=== PATIENT | male | born 1950 | race African-American/Black ===

== ENCOUNTER 2017-05-09 09:50 | Emergency (ER) | payer MEDICARE, OTHER ==
[~2017-05-09] VITALS: Ht 172.7 cm; Wt 70.0 kg
[~2017-05-09 09:50] MED LIST: ACET-2178 PO; AMLO5TAB4 PO; ASPI-1159 PO; CLOP75TA33 PO; DOCU-150 PO; FAMO20TA8 PO; HJ10 SUBCUT; HYDR-519 PO; INSASP SQ; IPRA3AMP IH; LACT10SO6 PO; LEVVL SQ; LORA-250 PO; MULT-1146 PO; NITR0.4T3 SL; NITR1OIN TD; RANO10003 PO; TRAM50TA3 PO; VIT D PO; ZOLP5TAB8 PO
[2017-05-09] MEDS ORDERED: METHYLPREDNISOLONE SOD SUCC 125 MG/2 ML VIAL IV STA (10:12)
[2017-05-09] MEDS ORDERED: IPRATROPIUM BROMIDE (0.02%) 0.5MG/2.5ML NEB HHN STA (10:12)
[2017-05-09 10:51] LABS: BASOPHILS % 0.8 % (0.0-2.0); EOSINOPHILS % 5.7 % (0.0-5.0); HEMATOCRIT. 42.2 % (42.0-52.0); HEMOGLOBIN. 13.6 g/dL (14.0-18.0); LYMPHOCYTES % 41.7 % (20.0-50.0); MEAN CORPUSCULAR HEMOGLOBIN 28.1 pg (28.0-32.0); MEAN CORPUSCULAR VOLUME 87.2 fL (80.0-94.0); MEAN PLATELET VOLUME 8.8 fl (7.4-10.4); MONOCYTES % 9.2 % (2.0-8.0); NEUTROPHILS % 42.6 % (40.0-76.0); PLATELET 230 x1000/uL (130-400); RED BLOOD CELL COUNT 4.84 mill/uL (4.7-6.1); RED CELL DISTRIBUTION WIDTH 15.3 % (11.6-14.6)
[2017-05-09 10:58] LABS: CHLORIDE 102 mEq/L (98-107); PROTHROMBIN TIME 10.7 sec
[2017-05-09] MEDS: ALBUTEROL (0.083%) 2.5MG/3ML NEB HHN SCH ×3 (10:58→11:29)
[2017-05-09 11:06] LABS: CARBON DIOXIDE 34 mEq/L (21-32)
[2017-05-09 18:51] VITALS: BP 143/72
== END 2017-05-09 19:01 | disposition home or self-care (01) ==
LOC: ER 10:07
DX: J44.1 Chronic obstructive pulmonary disease with (acute) exacerbation (principal); I10 Essential (primary) hypertension; E11.9 Type 2 diabetes mellitus without complications; F12.10 Cannabis abuse, uncomplicated; F14.10 Cocaine abuse, uncomplicated; F41.9 Anxiety disorder, unspecified; I25.10 Atherosclerotic heart disease of native coronary artery without angina pectoris; K21.9 Gastro-esophageal reflux disease without esophagitis; Z87.891 Personal history of nicotine dependence; Z79.82 Long term (current) use of aspirin; Z79.4 Long term (current) use of insulin
CPT/HCPCS: 36415; 71010; 80053; 85025; 85610; 93005; 94640; 96374; 99285; 99406; J2930; J7611

== ENCOUNTER 2017-07-06 08:33 | Inpatient (IN) | payer MEDICARE ==
[~2017-07-06] VITALS: Ht 185.4 cm; Wt 65.8 kg
[2017-07-06] MEDS ORDERED: SODIUM CHLORIDE 0.9% 1,000 ML IV ONE (08:48)
[2017-07-06] MEDS ORDERED: METHYLPREDNISOLONE SOD SUCC 125 MG/2 ML VIAL IV STA (08:48)
[2017-07-06] MEDS ORDERED: IPRATROPIUM/ALBUTEROL 0.5-3(2.5)MG/3ML NEB HHN ONE (09:00)
[2017-07-06 09:16] LABS: BASOPHILS % 1.3 % (0.0-2.0); EOSINOPHILS % 4.5 % (0.0-5.0); HEMATOCRIT. 41.5 % (42.0-52.0); HEMOGLOBIN. 13.3 g/dL (14.0-18.0); MEAN CORPUSCULAR VOLUME 87.1 fL (80.0-94.0); MEAN PLATELET VOLUME 8.8 fl (7.4-10.4); MONOCYTES % 6.9 % (2.0-8.0); NEUTROPHILS % 41.3 % (40.0-76.0); PLATELET 234 x1000/uL (130-400); RED BLOOD CELL COUNT 4.76 mill/uL (4.7-6.1); RED CELL DISTRIBUTION WIDTH 15.9 % (11.6-14.6)
[2017-07-06 09:25] LABS: PROTHROMBIN TIME 10.6 sec
[2017-07-06 09:33] LABS: CARBON DIOXIDE 31 mEq/L (21-32); CHLORIDE 104 mEq/L (98-107); TROPONIN I < 0.02 ng/mL (0.00-0.04)
[2017-07-06 09:53] LABS: CLARITY URINE CLEAR (CLEAR); COLOR URINE YELLOW (YELLOW); GLUCOSE URINE NEGATIVE (NEGATIVE); KETONES URINE NEGATIVE (NEGATIVE); LEUKOCYTE ESTERASE URINE NEGATIVE (NEGATIVE); NITRITE URINE NEGATIVE (NEGATIVE); OCCULT BLOOD URINE NEGATIVE (NEGATIVE); PROTEIN URINE NEGATIVE (NEGATIVE); SPECIFIC GRAVITY URINE 1.011 (1.005-1.030); UROBILINOGEN URINE 0.2 E.U./dL (0.2-1.0)
[2017-07-06] MEDS ORDERED: ZOLPIDEM TARTRATE 5MG TABLET PO PRN (20:30)
[2017-07-06] MEDS ORDERED: HYDROCODONE/ACETAMINOPHEN 10/325MG TABLET PO PRN (20:30)
[2017-07-06] MEDS ORDERED: DEXTROSE 50% WATER 50ML SYRINGE IV PRN (20:30)
[2017-07-06] MEDS ORDERED: NITROGLYCERIN 0.4MG TABLET SL SL PRN (20:30)
[2017-07-06] MEDS ORDERED: LACTULOSE 20G/30ML UDC PO PRN (20:30)
[2017-07-06] MEDS ORDERED: LORAZEPAM 1MG TABLET PO PRN (20:30)
[2017-07-06] MEDS ORDERED: ACETAMINOPHEN 325MG TABLET PO PRN (20:30)
[2017-07-06] MEDS: INSULIN LISPRO 100 UNITS/ML SUBCUT SCH (21:00)
[2017-07-06] MEDS ORDERED: AMLODIPINE 5MG TABLET PO SCH (21:00)
[2017-07-06] MEDS: BLOOD SUGAR DIAGNOSTIC STRIP TEST SCH (21:00)
[2017-07-06 21:25] VITALS: BP 152/93
[2017-07-06] MEDS ORDERED: CLONIDINE 0.1MG TABLET PO PRN (22:00)
[2017-07-06] MEDS ORDERED: ALBUTEROL (0.5%) 2.5MG/0.5ML NEB HHN ONE (22:07)
[2017-07-06 22:10] VITALS: BP 152/93
[2017-07-06] MEDS ORDERED: ALBUTEROL (0.083%) 2.5MG/3ML NEB ONE ×2 (22:28→22:32)
[2017-07-06] MEDS: AMLODIPINE 5MG TABLET PO SCH (22:49)
[2017-07-06] MEDS: RANOLAZINE 500 MG TAB.SR.12H PO SCH (22:50)
[2017-07-06 23:27] LABS: BASOPHILS % 0.3 % (0.0-2.0); HEMATOCRIT. 37.9 % (42.0-52.0); HEMOGLOBIN. 12.3 g/dL (14.0-18.0); LYMPHOCYTES % 33.6 % (20.0-50.0); MEAN CORPUSCULAR VOLUME 86.7 fL (80.0-94.0); MEAN PLATELET VOLUME 8.8 fl (7.4-10.4); MONOCYTES % 4.2 % (2.0-8.0); NEUTROPHILS % 61.9 % (40.0-76.0); PLATELET 228 x1000/uL (130-400); RED BLOOD CELL COUNT 4.37 mill/uL (4.7-6.1); RED CELL DISTRIBUTION WIDTH 16.4 % (11.6-14.6)
[2017-07-06 23:45] LABS: CARBON DIOXIDE 29 mEq/L (21-32); CHLORIDE 102 mEq/L (98-107); TROPONIN I < 0.02 ng/mL (0.00-0.04)
[2017-07-07] VITALS: BP 133/80
[2017-07-07] MEDS ORDERED: ALBUTEROL (0.083%) 2.5MG/3ML NEB ONE ×4 (00:52→12:30)
[2017-07-07 04:00] VITALS: BP 134/85
[2017-07-07] MEDS: ALBUTEROL (0.5%) 2.5MG/0.5ML NEB HHN SCH ×3 (04:47→12:17)
[2017-07-07] MEDS: BLOOD SUGAR DIAGNOSTIC STRIP TEST SCH ×4 (06:22→20:41)
[2017-07-07] MEDS: INSULIN LISPRO 100 UNITS/ML SUBCUT SCH ×4 (06:35→20:41)
[2017-07-07 08:00] VITALS: BP 140/87
[2017-07-07] MEDS: DOCUSATE SODIUM 100MG CAPSULE PO SCH ×2 (08:39→17:28)
[2017-07-07] MEDS: ASPIRIN 81MG TABLET PO SCH (08:40)
[2017-07-07] MEDS: MULTIVITAMINS,THER W-MINERALS TABLET PO SCH (08:41)
[2017-07-07] MEDS: CLOPIDOGREL 75MG TABLET PO SCH (08:41)
[2017-07-07] MEDS: FAMOTIDINE 20MG TABLET PO SCH (08:41)
[2017-07-07] MEDS: AMLODIPINE 5MG TABLET PO SCH ×2 (08:42→21:00)
[2017-07-07] MEDS ORDERED: METHYLPREDNISOLONE SOD SUCC 40 MG/ML VIAL IV SCH (08:45)
[2017-07-07] MEDS: RANOLAZINE 500 MG TAB.SR.12H PO SCH ×2 (08:47→21:17)
[2017-07-07] MEDS: ENOXAPARIN 40MG/0.4ML SYR SUBCUT SCH (09:00)
[2017-07-07 11:46] LABS: *AMPHETAMINES SCREEN URINE NEGATIVE (NEGATIVE); *BARBITURATES SCREEN URINE NEGATIVE (NEGATIVE); *BENZODIAZEPINES SCREEN URINE NEGATIVE (NEGATIVE); *COCAINE SCREEN URINE PRESUMTIVE POSITIVE (NEGATIVE); CANNABINOID URINE SCREEN NEGATIVE (NEGATIVE); METHADONE URINE SCREEN NEGATIVE (NEGATIVE); OPIATES URINE SCREEN NEGATIVE (NEGATIVE); PHENCYCLIDINE URINE SCREEN NEGATIVE (NEGATIVE)
[2017-07-07 12:00] VITALS: BP 136/83
[2017-07-07 16:00] VITALS: BP 130/80
[2017-07-07] MEDS: ALBUTEROL (0.083%) 2.5MG/3ML NEB HHN SCH ×2 (16:49→21:02)
[2017-07-07 20:00] VITALS: BP 116/71
[2017-07-08] VITALS (10 sets, daily range): BP systolic 117–145; BP diastolic 71–82
[2017-07-08] MEDS: ALBUTEROL (0.083%) 2.5MG/3ML NEB HHN SCH ×2 (00:29→04:38)
[2017-07-08 05:33] LABS: BASOPHILS % 0.2 % (0.0-2.0); EOSINOPHILS % 0.3 % (0.0-5.0); HEMATOCRIT. 35.2 % (42.0-52.0); HEMOGLOBIN. 11.4 g/dL (14.0-18.0); LYMPHOCYTES % 26.3 % (20.0-50.0); MEAN CORPUSCULAR VOLUME 86.7 fL (80.0-94.0); MONOCYTES % 10.4 % (2.0-8.0); NEUTROPHILS % 62.8 % (40.0-76.0); PLATELET 220 x1000/uL (130-400); RED BLOOD CELL COUNT 4.06 mill/uL (4.7-6.1); RED CELL DISTRIBUTION WIDTH 15.6 % (11.6-14.6)
[2017-07-08 06:17] LABS: CHLORIDE 101 mEq/L (98-107)
[2017-07-08 06:20] LABS: CARBON DIOXIDE 31 mEq/L (21-32)
[2017-07-08] MEDS: INSULIN LISPRO 100 UNITS/ML SUBCUT SCH ×4 (07:04→21:08)
[2017-07-08] MEDS: BLOOD SUGAR DIAGNOSTIC STRIP TEST SCH ×4 (07:04→21:00)
[2017-07-08] MEDS: CLOPIDOGREL 75MG TABLET PO SCH (08:29)
[2017-07-08] MEDS: ENOXAPARIN 40MG/0.4ML SYR SUBCUT SCH (08:29)
[2017-07-08] MEDS: DOCUSATE SODIUM 100MG CAPSULE PO SCH ×2 (08:29→17:25)
[2017-07-08] MEDS: ASPIRIN 81MG TABLET PO SCH (08:30)
[2017-07-08] MEDS: FAMOTIDINE 20MG TABLET PO SCH (08:30)
[2017-07-08] MEDS: MULTIVITAMINS,THER W-MINERALS TABLET PO SCH (08:31)
[2017-07-08] MEDS: AMLODIPINE 5MG TABLET PO SCH ×2 (08:33→20:36)
[2017-07-08] MEDS: RANOLAZINE 500 MG TAB.SR.12H PO SCH ×2 (08:33→21:05)
[2017-07-08] MEDS ORDERED: METHYLPREDNISOLONE SOD SUCC 40 MG/ML VIAL IV SCH (08:45)
[2017-07-08] MEDS: IPRATROPIUM BROMIDE (0.02%) 0.5MG/2.5ML NEB HHN SCH ×4 (09:19→20:52)
[2017-07-09] VITALS (7 sets, daily range): BP systolic 113–139; BP diastolic 68–83
[2017-07-09] MEDS: IPRATROPIUM BROMIDE (0.02%) 0.5MG/2.5ML NEB HHN SCH ×6 (01:29→21:36)
[2017-07-09] MEDS: INSULIN LISPRO 100 UNITS/ML SUBCUT SCH ×4 (06:09→20:53)
[2017-07-09] MEDS: BLOOD SUGAR DIAGNOSTIC STRIP TEST SCH ×4 (06:09→20:53)
[2017-07-09 06:29] LABS: BASOPHILS % 0.3 % (0.0-2.0); EOSINOPHILS % 0.7 % (0.0-5.0); HEMATOCRIT. 36.8 % (42.0-52.0); HEMOGLOBIN. 11.8 g/dL (14.0-18.0); LYMPHOCYTES % 36.1 % (20.0-50.0); MEAN CORPUSCULAR HEMOGLOBIN 27.4 pg (28.0-32.0); MEAN CORPUSCULAR VOLUME 85.4 fL (80.0-94.0); MEAN PLATELET VOLUME 8.8 fl (7.4-10.4); MONOCYTES % 10.8 % (2.0-8.0); NEUTROPHILS % 52.1 % (40.0-76.0); PLATELET 231 x1000/uL (130-400); RED BLOOD CELL COUNT 4.31 mill/uL (4.7-6.1); RED CELL DISTRIBUTION WIDTH 15.6 % (11.6-14.6)
[2017-07-09 07:04] LABS: CARBON DIOXIDE 33 mEq/L (21-32); CHLORIDE 99 mEq/L (98-107)
[2017-07-09] MEDS: CLOPIDOGREL 75MG TABLET PO SCH (09:54)
[2017-07-09] MEDS: ASPIRIN 81MG TABLET PO SCH (09:55)
[2017-07-09] MEDS: FAMOTIDINE 20MG TABLET PO SCH (09:55)
[2017-07-09] MEDS: RANOLAZINE 500 MG TAB.SR.12H PO SCH ×2 (09:55→20:34)
[2017-07-09] MEDS: MULTIVITAMINS,THER W-MINERALS TABLET PO SCH (09:55)
[2017-07-09] MEDS: DOCUSATE SODIUM 100MG CAPSULE PO SCH ×2 (09:55→17:30)
[2017-07-09] MEDS: AMLODIPINE 5MG TABLET PO SCH ×2 (09:55→20:46)
[2017-07-09] MEDS: ENOXAPARIN 40MG/0.4ML SYR SUBCUT SCH (09:56)
[2017-07-09] MEDS: BUDESONIDE 0.5MG/2ML NEB HHN SCH ×2 (12:22→21:36)
[2017-07-09] MEDS ORDERED: NICOTINE 21MG PATCH TD NR (13:30)
[2017-07-09] MEDS ORDERED: FUROSEMIDE 20MG/2ML VIAL IVP SCH (13:30)
[2017-07-09] MEDS: METHYLPREDNISOLONE SOD SUCC 40 MG/ML VIAL IV SCH ×2 (13:35→20:52)
[2017-07-09] MEDS: FAMOTIDINE 20MG/2ML VIAL IV SCH (20:35)
[2017-07-10] VITALS: BP 117/77
[2017-07-10] MEDS: IPRATROPIUM BROMIDE (0.02%) 0.5MG/2.5ML NEB HHN SCH ×4 (01:10→12:42)
[2017-07-10 04:00] VITALS: BP 119/77
[2017-07-10 06:27] LABS: BASOPHILS % 0.2 % (0.0-2.0); EOSINOPHILS % 0.1 % (0.0-5.0); HEMATOCRIT. 39.3 % (42.0-52.0); HEMOGLOBIN. 12.8 g/dL (14.0-18.0); MEAN CORPUSCULAR HEMOGLOBIN 27.9 pg (28.0-32.0); MEAN CORPUSCULAR VOLUME 85.7 fL (80.0-94.0); MONOCYTES % 4.2 % (2.0-8.0); NEUTROPHILS % 68.5 % (40.0-76.0); PLATELET 249 x1000/uL (130-400); RED BLOOD CELL COUNT 4.58 mill/uL (4.7-6.1); RED CELL DISTRIBUTION WIDTH 15.4 % (11.6-14.6)
[2017-07-10] MEDS: INSULIN LISPRO 100 UNITS/ML SUBCUT SCH ×2 (06:37→12:38)
[2017-07-10] MEDS: BLOOD SUGAR DIAGNOSTIC STRIP TEST SCH ×2 (06:37→12:38)
[2017-07-10] MEDS: METHYLPREDNISOLONE SOD SUCC 40 MG/ML VIAL IV SCH ×2 (06:56→12:37)
[2017-07-10 08:15] LABS: CARBON DIOXIDE 33 mEq/L (21-32); CHLORIDE 96 mEq/L (98-107)
[2017-07-10] MEDS: RANOLAZINE 500 MG TAB.SR.12H PO SCH (08:22)
[2017-07-10] MEDS: CLOPIDOGREL 75MG TABLET PO SCH (08:23)
[2017-07-10] MEDS: FAMOTIDINE 20MG/2ML VIAL IV SCH (08:23)
[2017-07-10] MEDS: ASPIRIN 81MG TABLET PO SCH (08:23)
[2017-07-10] MEDS: DOCUSATE SODIUM 100MG CAPSULE PO SCH (08:23)
[2017-07-10] MEDS: AMLODIPINE 5MG TABLET PO SCH (08:23)
[2017-07-10] MEDS: MULTIVITAMINS,THER W-MINERALS TABLET PO SCH (08:23)
[2017-07-10] MEDS: BUDESONIDE 0.5MG/2ML NEB HHN SCH (08:31)
[2017-07-10] MEDS: ENOXAPARIN 40MG/0.4ML SYR SUBCUT SCH (08:33)
[2017-07-10] MEDS ORDERED: NICOTINE 21MG PATCH TD SCH (09:00)
[2017-07-10 14:43] VITALS: BP 125/75
== END 2017-07-10 15:45 | DRG 189 ==
LOC: ER 08:43 → 5WST 10:34 → EDBEDREQSVC 10:39 → EDBEDREQ 10:39 → ENRESERV 17:36
PROVIDERS: ADMIT Specialist; ATTEND Specialist
DX: J96.21 Acute and chronic respiratory failure with hypoxia (principal); J44.1 Chronic obstructive pulmonary disease with (acute) exacerbation; D64.9 Anemia, unspecified; K21.9 Gastro-esophageal reflux disease without esophagitis; E11.9 Type 2 diabetes mellitus without complications; F14.10 Cocaine abuse, uncomplicated; F41.9 Anxiety disorder, unspecified; I11.9 Hypertensive heart disease without heart failure; F12.90 Cannabis use, unspecified, uncomplicated; I25.10 Atherosclerotic heart disease of native coronary artery without angina pectoris; I35.1 Nonrheumatic aortic (valve) insufficiency; Z72.0 Tobacco use; Z90.49 Acquired absence of other specified parts of digestive tract; Z99.81 Dependence on supplemental oxygen; Z79.4 Long term (current) use of insulin; Z79.899 Other long term (current) drug therapy; Z79.51 Long term (current) use of inhaled steroids; Z79.1 Long term (current) use of non-steroidal anti-inflammatories (NSAID); Z79.82 Long term (current) use of aspirin
CPT/HCPCS: 36415; 71010; 80048; 80053; 80305; 81003; 82962; 83735; 83880; 84484; 85025; 85610; 85730; 87040; 87086; 93005; 93970; 94640; 94664; 96374; 97162; 99285; J1650; J1815; J1940; J2920; J2930; J3490; J7030; J7611; J7620; J7626